=== PATIENT | female | born 1990 | race Caucasian/White ===

== ENCOUNTER 2022-06-07 15:06 | Outpatient (CLI) | payer OTHER, SELFPAY | END 2022-06-07 15:07 | disposition home or self-care (01) | LOC: NFLDREF 15:32 | PROVIDERS: PCP Registered Nurse; Visit Provider Registered Nurse | DX: Z31.69 Encounter for other general counseling and advice on procreation (principal) | CPT/HCPCS: 84144 ==

== ENCOUNTER 2022-09-17 07:40 | Outpatient (CLI) | payer OTHER, SELFPAY ==
[2022-09-20 02:47] LABS: Progesterone, HPLC-MS/MS 19.96 ng/mL
== END 2022-09-17 07:41 | disposition home or self-care (01) ==
PROVIDERS: PCP Registered Nurse; Visit Provider Registered Nurse
DX: N97.0 Female infertility associated with anovulation (principal)
CPT/HCPCS: 84144

== ENCOUNTER 2022-10-01 13:10 | Outpatient (CLI) | payer OTHER, SELFPAY ==
[2022-10-01 14:18] LABS: Clue Cells No Clue Cells Seen (None Seen); Trichomonas No Trichomonas Seen (None Seen); Yeast No Yeast Seen (None Seen)
[2022-10-01 15:23] LABS: Chlamydia DNA Amplified* NOT DETECTED (No Detected); GC DNA Amplified* NOT DETECTED (No Detected)
== END 2022-10-01 13:11 | disposition home or self-care (01) ==
PROVIDERS: PCP Family Medicine; Visit Provider Family Medicine
DX: R30.0 Dysuria (principal)
CPT/HCPCS: 87086; 87210; 87491; 87591